=== PATIENT | male | born 1975 | race Caucasian/White ===

== ENCOUNTER 2017-03-19 13:35 | Emergency (ER) | payer BC ==
[~2017-03-19] VITALS: Ht 177.8 cm; Wt 98.0 kg
[~2017-03-19 13:35] MED LIST: BEN25 PO; COLACE100 MG PO; NORCO1 TA2 PO
[2017-03-19 13:57] VITALS: Ht 177.8 cm; Wt 98.0 kg
[2017-03-19 16:44] VITALS: BP 154/99
== END 2017-03-19 16:44 | disposition home or self-care (01) ==
LOC: ED 13:35
DX: J20.9 Acute bronchitis, unspecified (principal); B09 Unspecified viral infection characterized by skin and mucous membrane lesions; E78.00 Pure hypercholesterolemia, unspecified; Z88.1 Allergy status to other antibiotic agents

== ENCOUNTER 2018-03-20 21:41 | Emergency (ER) | payer BC ==
[~2018-03-20] VITALS: Ht 177.8 cm; Wt 98.4 kg
[2018-03-20 21:46] VITALS: Ht 177.8 cm; Wt 98.4 kg
[2018-03-20 23:16] LABS: BASOPHIL % 0.8 % (0-2); PLATELET COUNT 260 x10^3mcL (130-400); RED CELL DISTRIBUTION WIDTH 13.8 % (11.5-14.5)
[2018-03-20 23:29] LABS: CALCIUM 8.4 mg/dL (8.5-10.1); CARBON DIOXIDE 28.1 mmol/L (21-32); CHLORIDE SERUM 103 mmol/L (98-107); CREATININE SERUM 0.8 mg/dL (0.7-1.3); GFR1 > 60 mL/min; GLUCOSE SERUM 123 mg/dL (74-106); POTASSIUM SERUM 3.7 mmol/L (3.5-5.1); SODIUM SERUM 140 mmol/L (136-145)
[2018-03-20 23:34] LABS: ALBUMIN 3.6 g/dL (3.4-5.0); ALKALINE PHOSPHATASE 111 U/L (46-116); ALT/SGPT 64 U/L (16-63); AST/SGOT 23 U/L (15-37); BILIRUBIN TOTAL 0.1 mg/dL (0.20-1.00); LIPASE 113 IU/L (73-393); TOTAL PROTEIN, SERUM 7.4 g/dL (6.4-8.2)
[2018-03-21 00:41] VITALS: BP 129/82
== END 2018-03-21 00:41 | disposition home or self-care (01) ==
LOC: ED 21:41
PROVIDERS: Emergency Medicine
DX: M54.9 Dorsalgia, unspecified (principal); R07.89 Other chest pain; E78.00 Pure hypercholesterolemia, unspecified; F17.210 Nicotine dependence, cigarettes, uncomplicated; Z88.1 Allergy status to other antibiotic agents
CPT/HCPCS: J1885; Q0092